=== PATIENT | male | born 1960 | race Caucasian/White ===

== ENCOUNTER 2017-12-16 22:35 | Emergency (ER) | payer OTHER ==
[~2017-12-16] VITALS: Ht 177.8 cm; Wt 72.6 kg
== END 2017-12-17 01:15 | disposition home or self-care (01) ==
LOC: ER 22:35
DX: S61.411A Laceration without foreign body of right hand, initial encounter (principal); F17.210 Nicotine dependence, cigarettes, uncomplicated; W22.8XXA Striking against or struck by other objects, initial encounter
CPT/HCPCS: 12001; 99283

== ENCOUNTER 2017-12-26 09:30 | Emergency (ER) | payer OTHER ==
[~2017-12-26] VITALS: Ht 177.8 cm; Wt 72.6 kg
== END 2017-12-26 10:04 | disposition home or self-care (01) ==
LOC: ER 09:30
DX: S61.212D Laceration without foreign body of right middle finger without damage to nail, subsequent encounter (principal); S61.214D Laceration without foreign body of right ring finger without damage to nail, subsequent encounter; M72.0 Palmar fascial fibromatosis [Dupuytren]; F17.210 Nicotine dependence, cigarettes, uncomplicated; W22.8XXD Striking against or struck by other objects, subsequent encounter
CPT/HCPCS: 99281

== ENCOUNTER 2018-05-27 09:23 | Day surgery (SDC) | payer OTHER ==
[~2018-05-27] VITALS: Ht 177.8 cm; Wt 65.3 kg
== END 2018-05-27 22:53 | disposition home or self-care (01) ==
LOC: ORSCMMR 09:23 → ORD 10:30 → ORSCMMR 10:30
PROVIDERS: Internal Medicine Gastroenterology
PROC: 0DBM8ZX Excision of Descending Colon, Via Natural or Artificial Opening Endoscopic, Diagnostic (ICD-10-PCS; principal; 2018-05-27 10:30)
PROC: 0DBN8ZX Excision of Sigmoid Colon, Via Natural or Artificial Opening Endoscopic, Diagnostic (ICD-10-PCS; principal; 2018-05-27 10:30)
DX: Z12.11 Encounter for screening for malignant neoplasm of colon (principal); D12.4 Benign neoplasm of descending colon; D12.5 Benign neoplasm of sigmoid colon; K57.30 Diverticulosis of large intestine without perforation or abscess without bleeding; K64.8 Other hemorrhoids; J44.9 Chronic obstructive pulmonary disease, unspecified; F17.210 Nicotine dependence, cigarettes, uncomplicated
CPT/HCPCS: J7030

== ENCOUNTER 2019-01-15 09:14 | Day surgery (SDC) | payer OTHER ==
[~2019-01-15] VITALS: Ht 177.8 cm; Wt 68.7 kg
== END 2019-01-15 12:45 | disposition home or self-care (01) ==
LOC: ORSCSDS 09:14
PROVIDERS: Orthopaedic Surgery
PROC: 0JNJ0ZZ Release Right Hand Subcutaneous Tissue and Fascia, Open Approach (ICD-10-PCS; principal; 2019-01-15 10:30)
PROC: 0LN70ZZ Release Right Hand Tendon, Open Approach (ICD-10-PCS; principal; 2019-01-15 10:30)
DX: M72.0 Palmar fascial fibromatosis [Dupuytren] (principal); Z87.891 Personal history of nicotine dependence
CPT/HCPCS: J0690; J1100; J1885; J2250; J2405; J2704; J3010; J7120

== ENCOUNTER 2020-12-02 09:51 | Emergency (ER) | payer OTHER ==
[~2020-12-02] VITALS: Ht 177.8 cm; Wt 70.3 kg
== END 2020-12-02 11:10 | disposition home or self-care (01) ==
LOC: ER 09:51
DX: S61.212A Laceration without foreign body of right middle finger without damage to nail, initial encounter (principal); J44.9 Chronic obstructive pulmonary disease, unspecified; F17.210 Nicotine dependence, cigarettes, uncomplicated; W26.0XXA Contact with knife, initial encounter
CPT/HCPCS: 12001; 99282-25